=== PATIENT | male | born 1950 | race Caucasian/White ===

== ENCOUNTER 2017-01-09 16:08 | Emergency (ER) | payer MEDICARE, OTHER ==
[2017-01-09 16:29] VITALS: TEMP 98
[2017-01-09] MEDS ORDERED: ALTEPLASE 100 ML ONE (16:33)
[2017-01-09] MEDS ORDERED: LABETALOL INJ 5 MG/ML VIAL IV ONE ×3 (16:36→17:23)
--- NOTE | 2017-01-09 16:42 | ED.PDOC ---
History of Present Illness - General Chief Complaint: Neuro Symptoms/Deficits Stated Complaint: Possible stroke Time Seen by Provider: 01/09/17 16:18 Source: family Exam Limitations: clinical condition, other - patient is aphasic - History of Present Illness Initial Comments: Patient is a 66-year-old male who became acutely aphasic while visiting his at her job today. Patient's states that she and the patient were engaging in conversation, a coworker of hers came by a few minutes later and spoke to the patient and the patient was unable to speak at that time. The patient has been aphasic except for in the car ride over when the patient was able to say "yes". Patient's states that patient had a similar episode 2 days ago while at religion in which patient was supposed to read a prayer but was unable to speak for approximately 20 seconds. Patient has no history of stroke in the past and has never been evaluated by a neurologist. reports that there is no facial drooping and no weakness noted. Timing/Duration: 1-3 hours Severity: moderate Improving Factors: nothing Worsening Factors: nothing Associated Symptoms: denies symptoms Allergies/Adverse Reactions: Allergies NO KNOWN ALLERGY Allergy (Verified 07/29/15 16:29) Review of Systems - Review of Systems Constitutional: Denies: chills, fever EENTM: Denies: blurred vision, double vision Respiratory: Denies: cough, short of breath - ne Cardiology: Denies: chest pain, palpitations Genitourinary: Denies: dysuria, frequency Musculoskeletal: Denies: joint pain, joint swelling Skin: Denies: change in color, lesions Neurological: States: see HPI, other - recent tia symptoms. Denies: numbness, paresthesia, weakness Endocrine: Denies: increased thirst, increased urine Hematologic/Lymphatic: Denies: anemia, blood clots Past Medical History (General) - Patient Medical History Hx Stroke: No Hx Cardiac Disorders: Yes - high cholesterol, [place] x 2 Hx Congestive Heart Failure: Yes Hx Pacemaker: Yes Hx Hypertension: Yes Hx Diabetes: Yes Hx Hepatitis C: Yes - Received Tx Hx MRSA: No - Vaccination History Hx Influenza Vaccination: Yes - 2015 Hx Pneumococcal Vaccination: Yes - 2015 - Social History Hx Tobacco Use: Yes - Quit 1996 Hx Chewing Tobacco Use: Yes - Quit 2013 Family Medical History - Family History Father Living Status: Cause of : CVA Hx Family Stroke: Yes Physical Exam - Physical Exam General Appearance: Alert, Comfortable, No apparent distress, Well Developed, Well Groomed, Well Hydrated ENT Exam: normal ENT inspection Neck: normal inspection Respiratory: chest non-tender, lungs clear, normal breath sounds, no respiratory distress Cardiovascular/Chest: regular rate, rhythm, no murmur Gastrointestinal/Abdominal: non tender, soft Back Exam: normal inspection Extremities Exam: normal range of motion Mental Status: alert, other - pt exhibits expressive aphasia, however 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 01/09/17 16:[address] Mora in the ER at [facility] who was able to consult the neurologist Dr. Alcantara who recommends administration of TPA. Dr. Mora also agrees to accept patient in transfer. 01/09/17 16:50 Patient given 20 mg of IV labetalol for blood pressure of 208/103. 01/09/17 17:00 repeat blood pressure 187/85. An additional 10 mg of IV labetalol ordered 01/09/17 17:08 patient's fingerstick greater than 400. Repeat blood pressure now 159/95 01/09/17 17:39 LABS RESULTED REVEALING A BLOOD GLUCOSE OF 1062. BICARBONATE OF 21 NO EVIDENCE OF DKA. WILL START INSULIN DRIP. TPA NOT GIVEN AT THIS TIME DUE TO ELEVATED BLOOD SUGAR. WILL NOTIFY [facility] AND CONTINUE PLANS TO TRANSFER. - Results/Orders Results/Orders: 01/09/17 16:15 EKG STAT 01/09/17 16:49 Sodium Chloride 0.9% 1000ML [Ns 1000 ml] 1,000 ml IVS .KVO 01/09/17 17:30 Alteplase [Activase (TPA)] 50 ml IVS ONCE 01/09/17 18:00 Insulin, Reg.(Human) [HumuLIN R] 250 units Sodium Chl 0.9% 250Ml (Melinda) [NS 250ml (MELINDA)] 247.5 ml IVPB Q12H Laboratory Results - last 24 hr 01/09/17 01/09/17 16:35 17:07 WBC 4.4 L RBC 4.39 L Hgb 13.9 L Hct 42.9 MCV 97.7 H MCH 31.6 H MCHC 32.4 L RDW 13.3 Plt Count 196 MPV 8.9 Absolute Neuts (auto) 3.30 Absolute Lymphs (auto) 0.60 L Absolute Monos (auto) 0.40 Absolute Eos (auto) 0.10 Absolute Basos (auto) 0.00 Neutrophils % 75.8 Lymphocytes % 13.0 L Monocytes % 8.0 Eosinophils % 2.3 Basophils % 0.9 PT 9.5 INR 0.840 PTT (SP) 27.0 Sodium 124 L Potassium 4.5 Chloride 92 L Carbon Dioxide 21 Anion Gap 15.5 BUN 36 H Creatinine 3.00 H BUN/Creatinine Ratio 12.0 POC Glucose > 400 H* Random Glucose 1065 H* Serum Osmolality 311.7 H Calcium 8.7 Magnesium 1.8 Creatine Kinase 88 CK-MB (CK-2) 7.4 H* CK-MB (CK-2) % Not Reportable Troponin I 0.03 - EKG/XRAY/CT EKG: Sinus - @92bpm, electronic ventricular paced rhythm, pr 260, qrs 114, qtc 593, no old ekg available for comparison. CT Ordered: Yes CT Interpretation Call Back: Yes CT Interpretation Call Back Date: 01/09/17 CT Interpretation Call Back Time: 16:36 - CT findings were relayed to me by Dr. Lares radiologist. CT interpreted as negative for acute bleeding Stroke Information - Onset of Symptoms Symptoms of Stroke: Aphasia Stroke Onset of Symptoms Date: 01/09/17 Stroke Onset of Symptoms Time: 15:00 - Contraindications t-PA Contraindication: Medical Contraindication - ELEVATED BLOOD GLUCOSE OF 1062. Departure - Departure Clinical Impression: Stroke-like symptoms, Uncontrolled hypertension, Hyperglycemic crisis in diabetes mellitus, History of coronary artery disease Time of Disposition: 17:45 Disposition: Transfer to Hospital Condition: Poor Departure Forms: ED Discharge - Pt. Copy, Patient Portal Self Enrollment Referrals: Marshal Segovia MD [Primary Care Provider] - 1-2 Weeks Critical Care Note - Critical Care Note Total Time (mins): 50 Comments: CRITICAL EVENT: ALTERED MENTAL STATUS, UNCONTROLLED HTN, HYPERGLYCEMIA CRITICAL FINDINGS: BP 208/103, BLOOD GLUCOSE: 1062, EXPRESSIVE APHASIA ON EXAM CRITICAL ACTIONS: IV LABETALOL, IV INSULIN DRIP, EMERGENT NEUROLOGY CONSULTATION , EMERGENT TRANSFER TO STROKE CENTER TOTAL TIME: 50 MINUTES Transfer to Outside Facility - Transfer Information Accepting Provider:: DR. MORA Accepting Facility: [facility] Reason for Transfer: required specialist not available - NEUROLOGIST
[2017-01-09] MEDS ORDERED: SODIUM CHLORIDE 0.9% 1000ML 1,000 ML IVS ONE (16:49)
--- NOTE | 2017-01-09 16:54 | CT ---
EXAM DESCRIPTION: Head CLINICAL HISTORY: 66 years, Male, stroke- unable to speak COMPARISON: July 29, 2015 TECHNIQUE: Head CT was performed without IV contrast. This exam was performed according to our departmental dose-optimization program, which includes automated exposure control, adjustment of the mA and/or kV according to patient size and/or use of iterative reconstruction technique. FINDINGS: No acute intracranial hemorrhage. There is no midline shift or other mass effect. The ventricles and basilar cisterns are well maintained. No posterior fossa lesion. Chronic ischemic changes are noted in the perirenal right matter. There is no cortical edema or sulcal effacement to suggest acute cortical infarct. Visualized paranasal sinuses and orbits are unremarkable. There is no calvarial lesion. IMPRESSION: Vascular calcifications and chronic ischemic changes, but no acute intracranial abnormality. If symptoms persist or worsen, followup head CT in 24 hr or MRI is recommended. Findings were reported by telephone to Dr. Nelson by me at the time of this dictation. Electronically signed by: Mars Lares MD 01/09/2017 4:36 PM CDT
[2017-01-09] MEDS ORDERED: ALTEPLASE (TPA) 100 MG/100 ML VIAL IV ONE (17:09)
[2017-01-09] MEDS ORDERED: INSULIN, REG.(HUMAN) 100 U/ML VIAL ONE ×2 (17:21→17:41)
[2017-01-09] MEDS ORDERED: INSULIN, REG.(HUMAN) 100 U/ML VIAL IV ONE (17:23)
[2017-01-09] MEDS ORDERED: ALTEPLASE 50 ML IVS ONE (17:30)
[2017-01-09] MEDS ORDERED: SODIUM CHL 0.9% 250ML (AVIVA) 250 ML IVPB ONE (17:41)
[2017-01-09] MEDS ORDERED: INSULIN, REG.(HUMAN) 250 UNITS in SODIUM CHL 0.9% 250ML (AVIVA) 247.5 ML IVPB SCH ×2 (18:00)
[2017-01-09 18:13] VITALS: BP 172/96; O2SAT 95
== END 2017-01-09 18:20 | disposition short-term general hospital (02) ==
LOC: ER 16:08
DX: E11.65 Type 2 diabetes mellitus with hyperglycemia (principal); R47.01 Aphasia; I25.2 Old myocardial infarction; I11.0 Hypertensive heart disease with heart failure; I50.9 Heart failure, unspecified; E78.00 Pure hypercholesterolemia, unspecified; I25.10 Atherosclerotic heart disease of native coronary artery without angina pectoris; Z86.19 Personal history of other infectious and parasitic diseases; Z95.0 Presence of cardiac pacemaker; Z87.891 Personal history of nicotine dependence; Z82.3 Family history of stroke
CPT/HCPCS: 36415; 36416; 70450; 80048; 81001; 82550; 82553; 82948; 83880; 84484; 85025; 85610; 85730; 93005; J7030

== ENCOUNTER → 2017-07-02 | Outpatient (CLI) | payer MEDICARE, OTHER | END | disposition home or self-care (01) | LOC: GMAH 10:34 | PROVIDERS: ATTEND Family Medicine | DX: Z12.5 Encounter for screening for malignant neoplasm of prostate (principal); E78.2 Mixed hyperlipidemia | CPT/HCPCS: 84443; 84550; G0103 ==

== ENCOUNTER → 2018-01-02 | Outpatient (CLI) | payer MEDICARE, OTHER ==
--- NOTE | 2018-01-02 15:56 | CT ---
EXAM DESCRIPTION: Abdoment/Pelvis w/o Contrast CLINICAL HISTORY: 67 years, Male, Chronic kidney disease, stage 4 COMPARISON: None. TECHNIQUE: CT of the abdomen and pelvis is performed according to our non contrast protocol. FINDINGS: The lung bases are clear. The heart is enlarged with cardiac pacer in place. Liver, spleen, and pancreas are unremarkable. The right kidney is unremarkable. The left kidney is unremarkable. Small bowel loops appear normal in caliber with normal wall thickness. There is no lymphadenopathy, inflammation, or free fluid observed. In the pelvis, the appendix is normal. No inflammation around the cecum or terminal ileum or sigmoid colon. No stones in the distal ureters or bladder. Rectal wall thickness is normal for degree of distention. No free fluid or mass in the pelvis. Uterus or prostate appears normal. Surgical clips are seen in the pelvis consistent with previous lymph node dissection. It appears that the prostate is surgically absent. Bladder is empty of urine with no stones in the empty bladder or the distal ureters. No inguinal or lower pelvic adenopathy. 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 Degenerative changes are seen in the lower L spine with spinal stenosis at L4-5. Coronal and sagittal reformatted images confirm the findings. Sagittal images show advanced degenerative disc disease at L5-S1. IMPRESSION: No acute process in the upper abdomen. No acute pelvic process. This exam was performed according to our departmental dose-optimization program, which includes automated exposure control, adjustment of the mA and/or kV according to patient size and/or use of iterative reconstruction technique. Total DLP equals 1005.16 mGycm. Electronically signed by: Hayden Arndt MD 01/02/2018 3:54 PM CDT
== END ==
LOC: CT 14:02
PROVIDERS: ATTEND Internal Medicine Nephrology
DX: N18.4 Chronic kidney disease, stage 4 (severe) (principal)

== ENCOUNTER → 2018-01-04 | Outpatient (CLI) | payer MEDICARE, OTHER | LOC: LAB.O 09:43 | PROVIDERS: ATTEND Internal Medicine Nephrology | DX: N18.4 Chronic kidney disease, stage 4 (severe) (principal); Z11.59 Encounter for screening for other viral diseases ==

== ENCOUNTER → 2018-06-05 | Outpatient (CLI) | payer MEDICARE | LOC: GMAH 09:00 | PROVIDERS: ATTEND Family Medicine | DX: I12.9 Hypertensive chronic kidney disease with stage 1 through stage 4 chronic kidney disease, or unspecified chronic kidney disease (principal); N18.4 Chronic kidney disease, stage 4 (severe); E11.65 Type 2 diabetes mellitus with hyperglycemia ==

== ENCOUNTER → 2018-08-28 | Outpatient (CLI) | payer MEDICARE | LOC: GMAH 08:54 | PROVIDERS: ATTEND Family Medicine | DX: I12.9 Hypertensive chronic kidney disease with stage 1 through stage 4 chronic kidney disease, or unspecified chronic kidney disease (principal); N18.4 Chronic kidney disease, stage 4 (severe); E11.65 Type 2 diabetes mellitus with hyperglycemia ==

== ENCOUNTER → 2019-09-10 | Outpatient (CLI) | payer MEDICARE | LOC: LAB.O 14:47 | PROVIDERS: ATTEND Urology | DX: R97.20 Elevated prostate specific antigen [PSA] (principal) ==

== ENCOUNTER 2020-03-04 09:21 | Emergency (ER) | payer MEDICARE ==
[2020-03-04] MEDS ORDERED: SODIUM CHLORIDE 0.9% (FLUSH) 10 ML SYG IV PRN (09:45)
[2020-03-04 09:54] VITALS: O2SAT 100
--- NOTE | 2020-03-04 09:56 | ED.PDOC ---
History of Present Illness - General Time Seen by Provider: 03/04/20 09:44 Source: patient, RN notes reviewed, Vital Signs reviewed, family - Exam Limitations: no limitations - History of Present Illness Initial Comments: Patient is a 69-year-old white male who presents with complaints of right heel pain, inability to walk and worsening weakness over the last few days. Patient was seen at his PCPs office, Dr. lauren gomez on Sunday and started on antibiotics for an heel ulcer. Patient denies any fever but states he is just been getting weaker and weaker over the last 3 days. Per the the heel wound appears to be getting worse. Patient states his blood sugars have been running in the 400s and he tells me that his hemoglobin A1c was 12.9 on Sunday. Nothing seems to improve this generalized weakness or make it worse. Less than a week ago patient was very ambulatory and could come and go to appointments without any difficulty. Timing/Duration: getting worse, other - Worsened over the last 3 days but has been getting worse over the last 2 weeks. Severity: severe Improving Factors: nothing Worsening Factors: nothing Associated Symptoms: weakness Allergies/Adverse Reactions: Allergies Doxycycline Allergy (Verified 03/04/20 09:57) Review of Systems - Review of Systems Constitutional: States: see HPI, malaise, weakness. Denies: chills, fever EENTM: States: no symptoms reported. Denies: eye pain, blurred vision, double vision Respiratory: States: no symptoms reported. Denies: cough, short of breath, stridor, wheezing Cardiology: States: no symptoms reported. Denies: chest pain, palpitations, syncope Gastrointestinal/Abdominal: States: no symptoms reported. Denies: abdominal pain, constipation, diarrhea, nausea, vomiting Genitourinary: States: no symptoms reported. Denies: discharge, frequency Musculoskeletal: States: no symptoms reported, see HPI. Denies: back pain, joint pain, joint swelling, muscle pain, muscle stiffness, neck pain Skin: States: see HPI - Patient with multiple abrasions from repeated falls x15 in the last 3 days., other. Denies: change in color, rash Neurological: States: see HPI, weakness. Denies: headache, paresthesia, tremors Endocrine: States: no symptoms reported Hematologic/Lymphatic: States: no symptoms reported All other Systems: Reviewed and Negative, No Change from Baseline Past Medical History (General) - Patient Medical History Hx Stroke: No Hx Cardiac Disorders: Yes - high cholesterol, [place] x 2 Hx Congestive Heart Failure: Yes Hx Pacemaker: Yes Hx Hypertension: Yes Hx Diabetes: Yes Hx Hepatitis C: Yes - Received Tx Hx MRSA: No - Vaccination History Hx Influenza Vaccination: Yes - 2016 Hx Pneumococcal Vaccination: Yes - 2016 - Social History Hx Tobacco Use: Yes - Quit 1996 Hx Chewing Tobacco Use: Yes - Quit 2013 Family Medical History - Family History Father Living Status: Cause of : CVA Hx Family Stroke: Yes Physical Exam - Physical Exam General Appearance: Alert, Anxious, Well Developed, Well Groomed, Well Hydrated, Well Nourished, Other - Patient with generalized weakness that is severe in nature. Eye Exam: bilateral normal Ears, Nose, Throat: hearing grossly normal, normal ENT inspection, normal pharynx Neck: non-tender, full range of motion, supple, normal inspection Respiratory: chest non-tender, lungs clear, normal breath sounds, no respiratory distress, no accessory muscle use Cardiovascular/Chest: normal peripheral pulses, regular rate, rhythm, no edema, no gallop, no JVD, no murmur Peripheral Pulses: radial,right: 2+, radial,left: 2+ Gastrointestinal/Abdominal: normal bowel sounds, non tender, soft, no organomegaly Back Exam: normal inspection, no CVA tenderness, no vertebral tenderness Extremity: normal range of motion, no calf tenderness, normal capillary refill, other - Patient with a 5 cm x 3 cm decubitus ulcer on the right heel with tenderness to palpation surrounding redness. 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 03/04/20 11:27 Patient with known renal failure on peritoneal dialysis. Patient continues with elevated BUN and creatinine. His potassium is low at 2.5. His albumin is also low. Patient has an elevated troponin which may be related to acute NH versus failure to clear secondary to renal failure and incomplete clearance via peritoneal dialysis. Patient does have an elevated blood sugar. Patient may have had runs of V. tach, but unable to interrogate his pacemaker and therefore, will defer to further evaluation at [facility]. Patient has been accepted at [facility]. Plan on transfer at this time. Recommendation of admission for further evaluation. I discussed this plan of care with the patient and his and they voiced understanding and agreement. Leon Freitas M.D. #[id number] - Results/Orders Results/Orders: 03/04/20 09:45 Sodium Chloride 0.9% (Flush) [Saline Flush Syringe] 10 ml IV PRN PRN 03/04/20 09:46 Pulse Oximetry Assessment DAILY URINALYSIS Stat 03/04/20 10:00 EKG STAT 03/05/20 09:00 Pulse Ox Daily Laboratory Results - last 24 hr 03/04/20 03/04/20 03/04/20 09:55 09:55 09:55 WBC 12.9 H RBC 4.05 L Hgb 13.2 L Hct 38.3 L MCV 94.4 H MCH 32.4 H MCHC 34.4 RDW 14.0 Plt Count 373 MPV 9.9 Absolute Neuts (auto) 10.90 H Absolute Lymphs (auto) 1.10 Absolute Monos (auto) 0.70 Absolute Eos (auto) 0.10 Absolute Basos (auto) 0.10 Neutrophils % 84.8 H Lymphocytes % 8.7 L Monocytes % 5.4 Eosinophils % 0.5 L Basophils % 0.6 Sodium 134 L Potassium 2.5 L Chloride 90 L Carbon Dioxide 26 Anion Gap 20.5 H BUN 38 H Creatinine 7.81 H* BUN/Creatinine Ratio 4.9 L POC Glucose 393 H Random Glucose 399 H Serum Osmolality 294.0 Calcium 8.5 Magnesium 1.8 Total Bilirubin 0.9 AST 29 ALT 28 Alkaline Phosphatase 168 H Creatine Kinase 261 H* CK-MB (CK-2) 14.7 H* CK-MB (CK-2) % 5.63 H Troponin I 7.82 H* Serum Total Protein 7.1 Albumin 2.8 L Globulin 4.3 H Albumin/Globulin Ratio 0.7 L Serum Ketones Negative EKG performed on February 2020 at 1000 hrs.: Electronic ventricular pacemaker at 83 bpm, no ST or T wave changes concerning for ischemia, abnormal EKG. No comparison EKG available at this time. EXAM DESCRIPTION: Chest,1 View CLINICAL HISTORY: weakness COMPARISON: December 23, 2013 FINDINGS: Again seen are postoperative changes in the mediastinum. A multilead cardiac device remains in place. Several superimposed EKG leads. The cardiomediastinal silhouette is unremarkable for AP technique. There is no airspace consolidation or pleural effusion. The bronchovascular markings are within normal limits, and the lungs are not hyperinflated. There is no pneumothorax or acute fracture. IMPRESSION: Postoperative changes in the mediastinum and cardiac pacemaker without acute intrathoracic abnormality. Electronically signed by: Mars Lares MD 03/04/2020 10:24 AM CDT EXAM DESCRIPTION: Foot,Right 3 Views CLINICAL HISTORY: 69 years Male, right heel pain COMPARISON: None. FINDINGS: Three views of the right foot show no acute fracture or malalignment. Vascular calcifications. Soft tissue defect posterior to the calcaneus. Small plantar calcaneal spur. IMPRESSION: Soft tissue defect over the posterior aspect of the calcaneus which may be related to either infection or trauma. No radiographic evidence of osteomyelitis. If clinically suspicious of osteomyelitis, MRI should be considered. Electronically signed by: Mars Lares MD 03/04/2020 10:23 AM CDT Vital Signs 03/04/20 03/04/20 03/04/20 09:30 09:46 10:23 Temperature 97.8 F 97.8 F Pulse Rate 79 Pulse Rate [ 82 82 79 brachial] Respiratory 16 16 16 Rate Blood Pressure 87/61 82/60 [Left Arm] O2 Sat by Pulse 100 100 Oximetry Departure - Departure Clinical Impression: Elevated troponin, Malaise and fatigue, Hypoalbuminemia Decubitus ulcer of foot, stage 2 Qualifiers: Laterality: right Qualified Code(s): L89.892 - Pressure ulcer of other site, stage 2 Renal failure Qualifiers: Renal failure chronicity: chronic Chronic kidney disease stage: on chronic dialysis Qualified Code(s): N18.6 - End stage renal disease; Z99.2 - Dependence on renal dialysis Hypotension Qualifiers: Hypotension type: unspecified hypotension type Qualified Code(s): I95.9 - Hypotension, unspecified Time of Disposition: 11:35 Disposition: Transfer to Hospital Condition: Fair Diet: resume usual diet Activity: increase activity as tolerated Referrals: Steven Caceres MD [Primary Care Provider] - 1-2 Weeks Transfer to Outside Facility - Transfer Information Decision to Transfer Date: 03/04/20 Decision to Transfer Time: 11:00 Reason for Transfer: specialized care not available Accepting Facility: [facility]
[2020-03-04] MEDS ORDERED: SODIUM CHLORIDE 0.9% 1000ML 1,000 ML ONE (10:10)
--- NOTE | 2020-03-04 10:24 | RAD ---
EXAM DESCRIPTION: Foot,Right 3 Views CLINICAL HISTORY: 69 years Male, right heel pain COMPARISON: None. FINDINGS: Three views of the right foot show no acute fracture or malalignment. Vascular calcifications. Soft tissue defect posterior to the calcaneus. Small plantar calcaneal spur. IMPRESSION: Soft tissue defect over the posterior aspect of the calcaneus which may be related to either infection or trauma. No radiographic evidence of osteomyelitis. If clinically suspicious of osteomyelitis, MRI should be considered. Electronically signed by: Mars Lares MD 03/04/2020 10:23 AM CDT
--- NOTE | 2020-03-04 10:25 | RAD ---
EXAM DESCRIPTION: Chest,1 View CLINICAL HISTORY: weakness COMPARISON: December 23, 2013 FINDINGS: Again seen are postoperative changes in the mediastinum. A multilead cardiac device remains in place. Several superimposed EKG leads. The cardiomediastinal silhouette is unremarkable for AP technique. There is no airspace consolidation or pleural effusion. The bronchovascular markings are within normal limits, and the lungs are not hyperinflated. There is no pneumothorax or acute fracture. IMPRESSION: Postoperative changes in the mediastinum and cardiac pacemaker without acute intrathoracic abnormality. Electronically signed by: Mars Lares MD 03/04/2020 10:24 AM CDT
[2020-03-04] MEDS ORDERED: SODIUM CHLORIDE 0.9% 1000ML 500 ML IVS ONE (10:30)
[2020-03-04 11:45] VITALS: TEMP 98.1
[2020-03-04 12:28] VITALS: BP 114/66
== END 2020-03-04 12:02 | disposition short-term general hospital (02) ==
LOC: ER 09:21
DX: L89.892 Pressure ulcer of other site, stage 2 (principal); R79.89 Other specified abnormal findings of blood chemistry; R53.81 Other malaise; E88.09 Other disorders of plasma-protein metabolism, not elsewhere classified; I13.2 Hypertensive heart and chronic kidney disease with heart failure and with stage 5 chronic kidney disease, or end stage renal disease; I50.9 Heart failure, unspecified; N18.6 End stage renal disease; I95.9 Hypotension, unspecified; Z99.2 Dependence on renal dialysis; Z87.891 Personal history of nicotine dependence
CPT/HCPCS: 36415; 71045; 73630; 80053; 82009; 82550; 82553; 82948; 83735; 84484; 85025; 93005; J7030